=== PATIENT | female | born 1945 | race Caucasian/White ===

== ENCOUNTER 2017-07-04 10:30 | Inpatient (IN) | payer MEDICARE ==
[~2017-07-04 10:30] MED LIST: Gentamicin 40 MG/ML 2 ML Vial ONE; Povidone-Iodine 10% Soln 118.25 ML Bottle ONE
[2017-07-04] MEDS ORDERED: Propofol 200 MG/20 ML SDV ONE ×2 (12:07→15:11)
[2017-07-04] MEDS ORDERED: fentaNYL 100 MCG/2 ML SDV ONE (12:07)
[2017-07-04] MEDS ORDERED: Midazolam 1 MG/ML 2 ML SDV ONE ×2 (12:07→15:24)
[2017-07-04] MEDS ORDERED: Lactated Ringers 1,000 ML IV SCH (12:30)
[2017-07-04] MEDS ORDERED: Scopolamine 1.5 MG Transdermal Patch TRDERM SCH (12:30)
[2017-07-04] MEDS ORDERED: Ropivacaine 49.25 ML, Ketorolac 30 MG, EPINEPHrine 0.5 MG, cloNIDine 80 MCG, Sodium Chl... INJECT ONE ×5 (13:30)
[2017-07-04] MEDS ORDERED: ceFAZolin 2 GM in Sodium Chloride 0.9% 50 ML IV ONE (13:30)
[2017-07-04] MEDS ORDERED: Ketamine 500 MG/5 ML MDV IV SCH (13:30)
[2017-07-04] MEDS: Tranexamic Acid 950 MG in Sodium Chloride 0.9% 50 ML IV SCH ×2 (15:15→17:02)
[2017-07-04] MEDS ORDERED: Lactated Ringers 1,000 ML ONE (15:24)
[2017-07-04] MEDS ORDERED: Morphine 2 MG/ML Syringe IVPUSH PRN (16:41)
[2017-07-04] MEDS ORDERED: Docusate Sodium 100 MG Cap PO PRN (16:41)
[2017-07-04] MEDS ORDERED: diphenhydrAMINE 50 MG/ML SDV IVPUSH PRN (16:41)
[2017-07-04] MEDS ORDERED: Zolpidem 5 MG Tab PO PRN (16:41)
[2017-07-04] MEDS ORDERED: Aluminum Hydroxide/Magnesium Hydroxide/Simethicone Susp 30 ML Cup PO PRN (16:41)
[2017-07-04] MEDS ORDERED: Naloxone 0.4 MG/ML SDV IVPUSH PRN (16:41)
[2017-07-04] MEDS ORDERED: Sennosides 8.6 MG Tab PO PRN (16:41)
[2017-07-04] MEDS ORDERED: Ondansetron 4 MG/2 ML SDV IVPUSH PRN (16:41)
[2017-07-04] MEDS: SCOPOLAMINE PATCH CHECK TOP SCH (17:37)
[2017-07-04] MEDS: Diazepam 5 MG Tab PO PRN (17:42)
[2017-07-04] MEDS: Ketorolac 30 MG/ML SDV IVPUSH PRN (17:43)
[2017-07-04] MEDS ORDERED: Acetaminophen 1,000 MG in Premix Bag 1 BAG IV ONE (18:00)
--- NOTE | 2017-07-04 18:46 | PCM.CONS ---
H&P History of Present Illness - General Date of Service: 07/04/17 Admit Problem/Dx: Source of Information: Patient, Provider, RN Notes Reviewed History Limitations: Reports: Altered Mental Status (Cognitive impairment, congenital) - History of Present Illness Initial Comments - Free Text/Narative: Ms. De Souza is a 71-year-old woman who I been asked to see by Dr. Tej Francisco for assistance in medical management during the postoperative period. 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 She underwent a left total knee arthroplasty done earlier today by Dr. Tej Francisco. She's doing well during the initial postoperative period, pain control is adequate. Denies nausea, vomiting, chest pain, or shortness of breath. Initial vital signs have been stable and she has remained afebrile. Left Knee Pain Score (Numeric/FACES): 8 - Related Data Allergies/Adverse Reactions: Allergies Allergy/AdvReac Type Severity Reaction Status Date / Time lactose Allergy Diarrhea Verified 07/04/17 12:29 Pork/Porcine Containing Allergy Diarrhea Verified 07/04/17 12:29 Products tree and shrub pollen Allergy Wheezing Verified 06/30/17 14:27 Home Medications: Home Meds Calcium Carbonate/Vitamin D3 [Calcium 600 + Vit D 400 Softgl] 1 tab PO BID 04/11 [History] Cholecalciferol (Vitamin D3) [Vitamin D3] 1 tab PO DAILY 04/11/17 [History] Docusate Sodium [Doc-Q-Lace] 10 mg PO DAILY 04/11/17 [History] Esomeprazole Magnesium [Nexium] 40 mg PO DAILY 04/11/17 [History] Fluticasone Propionate [Flonase] 2 spray NASBOTH DAILY 04/11/17 [History] Furosemide [Lasix] 20 mg PO DAILY 04/11/17 [History] Lisinopril [Zestril] 5 mg PO DAILY 04/11/17 [History] Loperamide [Imodium] 2 mg PO BID 04/11/17 [History] Loratadine [Claritin] 10 mg PO DAILY 04/11/17 [History] Naproxen 500 mg PO BID 04/11/17 [History] QUEtiapine [SEROquel] 100 mg PO DAILY 04/11/17 [History] atorvaSTATin [Lipitor] 10 mg PO DAILY 04/11/17 [History] Sertraline [Zoloft] 100 mg PO DAILY 04/13/17 [History] Past Medical History HEENT History: Reports: Impaired Vision Cardiovascular History: Reports: Hypertension Gastrointestinal History: Reports: Chronic Diarrhea, GERD, Irritable Bowel Syndrome Musculoskeletal History: Reports: Back Pain, Chronic, Other (See Below) Other Musculoskeletal History: L knee pain Psychiatric History: Reports: Learning Disability Endocrine/Metabolic History: Reports: Obesity/BMI 30+ - Infectious Disease History Infectious Disease History: Reports: Measles - Past Surgical History Cardiovascular Surgical History: Reports: None GI Surgical History: Reports: None Endocrine Surgical History: Reports: None Musculoskeletal Surgical History: Reports: None Dermatological Surgical History: Reports: None Social & Family History - Tobacco Use Smoking Status *Q: Never Smoker Second Hand Smoke Exposure: No - Caffeine Use Caffeine Use: Reports: Coffee, Soda - Recreational Drug Use Recreational Drug Use: No H&P Review of Systems - Review of Systems: Review Of Systems: See Below General: Reports: No Symptoms Pulmonary: Reports: No Symptoms Cardiovascular: Reports: No Symptoms Gastrointestinal: Reports: No Symptoms Genitourinary: Reports: No Symptoms Musculoskeletal: Reports: No Symptoms, Joint Pain Exam - Exam Exam: See Below - Vital Signs Vital Signs: Last Vital Signs Temp 96.5 F 07/04/17 18:05 Pulse 76 07/04/17 18:20 Resp 18 07/04/17 18:20 BP 143/59 H 07/04/17 18:20 Pulse Ox 95 07/04/17 18:20 Weight: 205 lb - Exam Quality Assessment: Urinary Catheter, DVT Prophylaxis General: Alert, Cooperative, Mild Distress Neck: Supple, Trachea Midline, +2 Carotid Pulse wo Bruit Lungs: Clear to Auscultation, Normal Respiratory Effort Cardiovascular: Regular Rate, Regular Rhythm, Normal S1, Normal S2. No: Systolic Murmur, Diastolic Murmur GI/Abdominal Exam: Normal Bowel Sounds, Soft, Non-Tender, No Organomegaly, No Distention - Patient Data Lab Results Last 24 hrs: Laboratory Results - last 24 hr 07/04/17 Range/Units 12:20 Blood Type O POSITIVE Gel Antibody Screen Negative Consult PN Assessment/Plan Procedures: Procedures BLOOD TYPING SEROLOGIC ABO (06/29/17) BLOOD TYPING SEROLOGIC RH(D) (06/29/17) COMP SCREEN MAMMOGRAM ADD-ON (02/16/15) COMPLETE CBC AUTOMATED (06/29/17) COMPREHEN METABOLIC PANEL (06/29/17) CULTURE OTHR SPECIMN AEROBIC (06/29/17) ELECTROCARDIOGRAM TRACING (06/29/17) OFFICE/OUTPATIENT VISIT NEW (04/13/17) PT EVALUATION (12/18/13) RBC ANTIBODY SCREEN (06/29/17) ROUTINE VENIPUNCTURE (06/29/17) THERAPEUTIC EXERCISES (12/18/13) URINALYSIS AUTO W/O SCOPE (06/29/17) Problem List Initiated/Reviewed/Updated: Yes My Orders Last 24 Hours: My Active Orders 07/05/17 07:30 Pantoprazole [ProTONIX] 40 mg PO ACBREAKFAST 07/05/17 09:00 Fluticasone Propionate [Flonase] 0 gm NASBOTH DAILY Lisinopril [Prinivil] 5 mg PO DAILY Loratadine [Claritin] 10 mg PO DAILY QUEtiapine [SEROquel] 100 mg PO DAILY Sertraline [Zoloft] 100 mg PO DAILY atorvaSTATin [Lipitor] 10 mg PO DAILY Plan: ASSESSMENT AND RECOMMENDATIONS STATUS POST LEFT KNEE REPLACEMENT-stable and doing well during the initial postoperative period -Postoperative care per Dr. Francisco HYPERTENSION -Continue outpatient medical regimen, adjust as needed during hospital stay ENVIRONMENTAL ALLERGIES -Continue outpatient medical regimen Requesting Provider: CHARISMA Date Consult Requested: 07/04/17 Reason for Consult: Postoperative medical management
[2017-07-04] MEDS: oxyCODONE 5 MG Tab PO PRN (19:28)
[2017-07-04] MEDS: ceFAZolin 2 GM in Sodium Chloride 0.9% 50 ML IV SCH (21:23)
--- NOTE | 2017-07-04 23:04 | OR ---
DATE OF PROCEDURE: 07/04/2017 PREOPERATIVE DIAGNOSIS: Left knee primary osteoarthritis. POSTOPERATIVE DIAGNOSIS: Left knee primary osteoarthritis. PROCEDURE: Left knee total knee arthroplasty. SIGNAL INTEGRITY ENGINEER: CESAR Rankin. ANESTHESIA: Spinal plus conscious sedation. FLUID: Lactated Ringer solution. ESTIMATED BLOOD LOSS: 50 mL. COMPLICATIONS: None. SPECIMEN: None. DISCHARGE DISPOSITION: Stable to PACU. INSTRUMENTATION: Biomet Vanguard knee 62.5 femur, 71 tibia, 12 mm polyethylene insert, and 34 mm patella. HISTORY AND INDICATIONS FOR THE PROCEDURE: The patient was seen preoperatively in the clinic. She lives at a care facility here in [facility] and does have some mental deficits cognitively. She had failed nonoperative treatment. Preoperative imaging confirmed the above-mentioned diagnosis. Risks and benefits of the procedure were explained to the patient, her caregiver, and family and informed consent was obtained. DETAILS OF PROCEDURE: The patient was seen preoperatively by myself and the anesthesia staff in the preop holding area where the operative site was marked. She was brought to the operative suite by the anesthesia staff where spinal anesthesia and conscious sedation were administered. A well-padded tourniquet was placed on the left thigh. The left lower extremity was then prepped and draped in sterile manner. Time-out was called identifying the correct patient, correct procedure, the correct site, and antibiotics had begun with appropriate period of time. A midline incision was made 3 fingerbreadths proximal to the patella and carried down to the level of the tibial tubercle. A medial parapatellar arthrotomy was then made. A full synovectomy was performed. The infrapatellar fat pad was removed. The medial tibial plateau was visualized using Bovie electrocautery. Hemostasis was accomplished with Bovie electrocautery as well as an Aquamantys unit. Large amount of osteophytes around the patella, which needed to be removed prior to everting, it was then everted. The knee was flexed and then two cuts were made on the patella. This measured 34. Three holes were drilled. The patellar trial was then inserted. We then reamed the distal femoral canal and then placed the intramedullary guide at 9 mm distal cut, 5 degree of valgus. The guide was pinned in place. The distal cut was made and then the guide was removed. I then used a posterior condylar guide measuring 62.5 and then drilled the holes for this. I then inserted our chamfer block and then made the anterior, posterior, and chamfer cuts. I then removed the cut material using an osteotome. I then removed some osteophytes from around the tibial plateau and then made my proximal tibia cut using an extramedullary guide at approximately 5 degree posterior slope and then removed the proximal tibia using rongeur and Bovie electrocautery. We then used a laminar plant protection guard medially and laterally and removed the medial and lateral meniscus as well as removed extensive osteophytes posteriorly from the condyles. The posterior cruciate ligament was left intact. The anterior cruciate ligament was removed. I then anteriorized the tibia using a blunt Hohmann and protecting the medial collateral ligament with Z retractor and lateral collateral ligament with sharp Hohmann. I then placed our baseplate trial and then pinned this in place and then tamped down our fin cut. I then applied our tibial baseplate with the fin and then our femoral component drilled the lugs and then inserted the 10 tibia. This appeared to be a little bit tight in flexion, but good stability throughout range of motion. I then removed all of our components, copiously irrigated with saline. I then released part of the posterior lateral capsule using a pie cut technique. We then cemented our components in place, and the tourniquet was let down for 46 minutes. Please note that we did exsanguinate the left lower extremity and tourniquet was raised to 300 mmHg for 46 minutes. After this had been accomplished, we then removed our trial polyethylene insert and then removed any excess cement, copiously irrigated with saline, and then trialed with a 12, which I thought had a little bit better stability. We then inserted our 12 polyethylene insert. This provided good range of motion with mid flexion stability. We then copiously irrigated with saline again and then closed our capsule with two #5 Ethibond as well as #1 Stratafix and 3-0 Stratafix and then skin lidya. The patient was then transferred to hospital bed and taken to the PACU in stable condition. Kody Francisco DO /[id number]
[2017-07-05] MEDS: oxyCODONE 5 MG Tab PO PRN ×3 (01:20→10:05)
[2017-07-05] MEDS: Ketorolac 30 MG/ML SDV IVPUSH PRN (01:23)
[2017-07-05] MEDS: ceFAZolin 2 GM in Sodium Chloride 0.9% 50 ML IV SCH ×2 (05:22→14:42)
[2017-07-05] MEDS: Loratadine 10 MG Tab PO SCH (09:57)
[2017-07-05] MEDS: Pantoprazole 40 MG Tab.CR PO SCH (09:57)
[2017-07-05] MEDS: Aspirin 325 MG Tab.EC PO SCH (09:58)
[2017-07-05] MEDS: atorvaSTATin 10 MG Tab PO SCH (09:59)
[2017-07-05] MEDS: Fluticasone Propionate Nasal Spray 16 GM Bottle NASBOTH SCH (09:59)
[2017-07-05] MEDS: Lisinopril 5 MG Tab PO SCH (10:00)
[2017-07-05] MEDS: QUEtiapine 100 MG Tab PO SCH (10:04)
[2017-07-05] MEDS: Sertraline 50 MG Tab PO SCH (10:05)
[2017-07-05] MEDS: SCOPOLAMINE PATCH CHECK TOP SCH (10:07)
--- NOTE | 2017-07-05 10:16 | CR ---
Knee 1V or 2V Lt INDICATION: s/p left total knee replacement FINDINGS: Postoperative changes left total knee arthroplasty. Negative for postoperative purposes.
--- NOTE | 2017-07-05 12:19 | PCM.PN ---
- General Info Functional Status: Reports: Pain Controlled - Review of Systems General: Reports: No Symptoms HEENT: Reports: No Symptoms Pulmonary: Reports: No Symptoms Cardiovascular: Reports: No Symptoms Gastrointestinal: Reports: No Symptoms Genitourinary: Reports: No Symptoms Musculoskeletal: Reports: Joint Pain Skin: Reports: No Symptoms Neurological: Reports: No Symptoms Psychiatric: Reports: No Symptoms - Patient Data Vitals - Most Recent: Last Vital Signs Temp 98.2 F 07/05/17 11:35 Pulse 93 07/05/17 11:35 Resp 16 07/05/17 11:35 BP 123/89 07/05/17 11:35 Pulse Ox 91 L 07/05/17 11:35 Weight - Most Recent: 205 lb I&O - Last 24 Hours: Intake & Output 07/04/17 07/05/17 07/05/17 22:59 06:59 14:59 Intake Total 50 575 120 Output Total 450 282 100 Balance -400 293 20 Lab Results Last 24 Hours: Laboratory Results - last 24 hr 07/04/17 07/05/17 07/05/17 Range/Units 12:20 06:08 06:08 WBC 9.1 (4.5-11.0) K/uL RBC 3.96 (3.30-5.50) M/uL Hgb 10.7 L D (12.0-15.0) g/dL Hct 34.0 L (36.0-48.0) % MCV 86 (80-98) fL MCH 27 (27-31) pg MCHC 32 (32-36) % Plt Count 199 (150-400) K/uL Neut % (Auto) 79 H (36-66) % Lymph % (Auto) 13 L (24-44) % [place] % (Auto) 8 H (2-6) % Eos % (Auto) 1 L (2-4) % Baso % (Auto) 0 (0-1) % Sodium 140 (140-148) mmol/L Potassium 3.8 (3.6-5.2) mmol/L Chloride 105 (100-108) mmol/L Carbon Dioxide 29 (21-32) mmol/L Anion Gap 6.3 (5.0-14.0) mmol/L BUN 12 (7-18) mg/dL Creatinine 0.7 (0.6-1.0) mg/dL Est Cr Clr Drug Dosing 53.71 mL/min Estimated GFR (MDRD) > 60 (>60) Glucose 107 H (74-106) mg/dL Calcium 8.0 L (8.5-10.1) mg/dL Total Bilirubin 0.3 (0.2-1.0) mg/dL AST 60 H D (15-37) U/L ALT 42 D (12-78) U/L Alkaline Phosphatase 142 H (46-116) U/L Total Protein 6.3 L (6.4-8.2) g/dL Albumin 2.6 L (3.4-5.0) g/dL Globulin 3.7 H (2.3-3.5) g/dL Albumin/Globulin Ratio 0.7 L (1.2-2.2) Blood Type O POSITIVE Gel Antibody Screen Negative Med Orders - Current: Current Medications Al Hydroxide/Mg Hydroxide (Mag-Al Plus) 30 ml PO Q4H PRN PRN Reason: Constipation Aspirin (Ecotrin) 325 mg PO DAILY [facility] Last Admin: 07/05/17 09:58 Dose: 325 mg Atorvastatin Calcium (Lipitor) 10 mg PO DAILY [facility] Last Admin: 07/05/17 09:59 Dose: 10 mg Bisacodyl (Dulcolax) 10 mg PO DAILY PRN PRN Reason: Constipation Diazepam (Valium.) 5 mg PO Q6H PRN PRN Reason: Spasms Last Admin: 07/04/17 17:42 Dose: 5 mg Diphenhydramine HCl (Benadryl) 25 mg IVPUSH Q4H PRN PRN Reason: Itching Docusate Sodium (Colace) 100 mg PO BID PRN PRN Reason: Constipation Fluticasone Propionate (Flonase) 0 gm NASBOTH DAILY [facility] Last Admin: 07/05/17 09:59 Dose: 2 sprays Lactated Ringer's (Ringers, Lactated) 1,000 mls @ 0 mls/hr IV ASDIRECTED [facility] PRN Reason: KVO Last Infusion: 07/04/17 19:32 Dose: Infused Cefazolin Sodium 2 gm/ Sodium (Chloride) 50 mls @ 100 mls/hr IV Q8H [facility] Stop: 07/05/17 13:29 Last Admin: 07/05/17 05:22 Dose: 100 mls/hr Ketorolac Tromethamine (Toradol) 15 mg IVPUSH Q8H PRN PRN Reason: Pain Stop: 07/09/17 16:41 Last Admin: 07/05/17 01:23 Dose: 15 mg Lisinopril (Prinivil) 5 mg PO DAILY [facility] Last Admin: 07/05/17 10:00 Dose: 5 mg Loratadine (Claritin) 10 mg PO DAILY [facility] Last Admin: 07/05/17 09:57 Dose: 10 mg Magnesium Hydroxide (Milk Of Magnesia) 30 ml PO BID PRN PRN Reason: Constipation Morphine Sulfate (Morphine) 2 mg IVPUSH Q2H PRN PRN Reason: Pain Naloxone HCl (Narcan) 0.1 mg IVPUSH ONETIME PRN PRN Reason: Oversedation Scopolamine Patch (Check) 1 each TOP DAILY [facility] Last Admin: 07/05/17 10:07 Dose: 1 each Ondansetron HCl (Zofran) 8 mg IVPUSH Q4H PRN PRN Reason: Nausea/Vomiting Oxycodone HCl (Oxycodone) 10 mg PO Q4H PRN PRN Reason: Pain Last Admin: 07/05/17 10:05 Dose: 10 mg Pantoprazole Sodium (Protonix) 40 mg PO ACBREAKFAST [facility] Last Admin: 07/05/17 09:57 Dose: 40 mg Quetiapine Fumarate (Seroquel) 100 mg PO DAILY [facility] Last Admin: 07/05/17 10:04 Dose: 100 mg Scopolamine (Transderm-Scop) 1.5 mg TRDERM Q72H [facility] Stop: 07/07/17 12:00 Last Admin: 07/04/17 21:15 Dose: 1.5 mg Senna (Senna) 8.6 mg PO BID PRN PRN Reason: Constipation Sertraline HCl (Zoloft) 100 mg PO DAILY [facility] Last Admin: 07/05/17 10:05 Dose: 100 mg Sodium Chloride (Saline Flush) 10 ml FLUSH DAILY [facility] Tramadol HCl (Ultram) 100 mg PO Q6H PRN PRN Reason: Pain Zolpidem Tartrate (Ambien) 5 mg PO BEDTIME PRN PRN Reason: Sleep Discontinued Medications Ropivacaine 49.25 ml/Ketorolac Tromethamine 30 mg/Epinephrine HCl 0.5 mg/ Clonidine HCl 80 mcg/ Sodium Chloride 48.45 ml 0 ml INJECT ONETIME ONE Stop: 07/04/17 13:31 Last Admin: 07/04/17 16:30 Dose: 100 ml Fentanyl (Sublimaze) Confirm Administered Dose 100 mcg .ROUTE .STK-MED ONE Stop: 07/04/17 12:08 Gentamicin Sulfate (Gentamicin) Confirm Administered Dose 240 mg .ROUTE .STK- MED ONE Stop: 07/04/17 06:59 Last Admin: 07/04/17 15:42 Dose: 240 mg Cefazolin Sodium 2 gm/ Sodium (Chloride) 50 mls @ 100 mls/hr IV ONETIME ONE Stop: 07/04/17 13:59 Last Admin: 07/04/17 14:30 Dose: 100 mls/hr Tranexamic Acid 950 mg/ Sodium (Chloride) 59.5 mls @ 238 mls/hr IV Q3H [facility] Stop: 07/04/17 16:44 Last Admin: 07/04/17 17:02 Dose: 238 mls/hr Lactated Ringer's (Ringers, Lactated) Confirm Administered Dose 1,000 mls @ as directed .ROUTE .STK-MED ONE Stop: 07/04/17 15:25 Acetaminophen 1,000 mg/ Premix 100 mls @ 400 mls/hr IV NOW ONE Stop: 07/04/17 18:14 Last Admin: 07/04/17 17:29 Dose: 400 mls/hr Ketamine HCl (Ketalar) 23 mg IV ASDIRECTED [facility] Midazolam HCl (Versed 1 Mg/Ml) Confirm Administered Dose 2 mg .ROUTE .STK-MED ONE Stop: 07/04/17 12:08 Midazolam HCl (Versed 1 Mg/Ml) Confirm Administered Dose 2 mg .ROUTE .STK-MED ONE Stop: 07/04/17 15:25 Povidone Iodine (Betadine 10% Soln) Confirm Administered Dose 1 ml .ROUTE .STK- MED ONE Stop: 07/04/17 06:59 Last Admin: 07/04/17 15:59 Dose: 1 ml Propofol (Diprivan 20 Ml) Confirm Administered Dose 200 mg .ROUTE .STK-MED ONE Stop: 07/04/17 12:08 Propofol (Diprivan 20 Ml) Confirm Administered Dose 200 mg .ROUTE .STK-MED ONE Stop: 07/04/17 15:12 - Exam General: Alert, Oriented HEENT: Pupils Equal, Pupils Reactive, EOMI, Mucous Membr. Moist/Blair Neck: Supple Extremities: Joint Swelling Peripheral Pulses: 2+: Dorsalis Pedis (L) Skin: Warm, Dry, Intact Wound/Incisions: Healing Well, Dressing Dry and Intact Neurological: No New Focal Deficit Psy/Mental Status: Alert, Normal Affect, Normal Mood Physical Findings Comments:: rom 12-86 pain controlled - Problem List Review Problem List Initiated/Reviewed/Updated: Yes - My Orders Last 24 Hours: My Active Orders 07/04/17 12:30 Lactated Ringers [Ringers, Lactated] 1,000 ml IV ASDIRECTED Scopolamine [Transderm-Scop] 1.5 mg TRDERM Q72H 07/04/17 13:00 Sequential Compression Device [OM.PC] Routine 07/04/17 16:00 Non-Formulary Medication [NF Drug] 1 each TOP DAILY - Plan Plan:: pt/ot pain control dvt prophylaxis most likely dc to [facility] emphasized need for extension
[2017-07-05] MEDS: Sodium Chloride 0.9% 10 ML Syringe FLUSH SCH (14:59)
[2017-07-05] MEDS: traMADol 50 MG Tab PO PRN ×2 (15:03→22:10)
[2017-07-05] MEDS: Diazepam 5 MG Tab PO PRN ×2 (15:07→22:11)
--- NOTE | 2017-07-05 19:23 | PCM.CONSN ---
- General Info Date of Service: 07/05/17 Functional Status: Reports: Pain Controlled, Tolerating Diet, Ambulating - Review of Systems General: Denies: Fever, Weakness, Chills Pulmonary: Reports: No Symptoms Cardiovascular: Reports: No Symptoms Gastrointestinal: Reports: No Symptoms Systems Review Comment:: This patient has remained stable since surgery yesterday, vital signs have been good and she has remained afebrile. She is been up and walking in the halls with assistance and use of a walker. - Patient Data Vitals - Most Recent: Last Vital Signs Temp 97.9 F 07/05/17 19:12 Pulse 95 07/05/17 19:12 Resp 16 07/05/17 19:12 BP 132/63 07/05/17 19:12 Pulse Ox 91 L 07/05/17 19:12 Weight - Most Recent: 205 lb I&O - Last 24 Hours: Intake & Output 07/05/17 07/05/17 07/05/17 06:59 14:59 22:59 Intake Total 575 870 Output Total 282 200 Balance 293 670 Lab Results Last 24 Hours: Laboratory Results - last 24 hr 07/05/17 07/05/17 Range/Units 06:08 06:08 WBC 9.1 (4.5-11.0) K/uL RBC 3.96 (3.30-5.50) M/uL Hgb 10.7 L D (12.0-15.0) g/dL Hct 34.0 L (36.0-48.0) % MCV 86 (80-98) fL MCH 27 (27-31) pg MCHC 32 (32-36) % Plt Count 199 (150-400) K/uL Neut % (Auto) 79 H (36-66) % Lymph % (Auto) 13 L (24-44) % [place] % (Auto) 8 H (2-6) % Eos % (Auto) 1 L (2-4) % Baso % (Auto) 0 (0-1) % Sodium 140 (140-148) mmol/L Potassium 3.8 (3.6-5.2) mmol/L Chloride 105 (100-108) mmol/L Carbon Dioxide 29 (21-32) mmol/L Anion Gap 6.3 (5.0-14.0) mmol/L BUN 12 (7-18) mg/dL Creatinine 0.7 (0.6-1.0) mg/dL Est Cr Clr Drug Dosing 53.71 mL/min Estimated GFR (MDRD) > 60 (>60) Glucose 107 H (74-106) mg/dL Calcium 8.0 L (8.5-10.1) mg/dL Total Bilirubin 0.3 (0.2-1.0) mg/dL AST 60 H D (15-37) U/L ALT 42 D (12-78) U/L Alkaline Phosphatase 142 H (46-116) U/L Total Protein 6.3 L (6.4-8.2) g/dL Albumin 2.6 L (3.4-5.0) g/dL Globulin 3.7 H (2.3-3.5) g/dL Albumin/Globulin Ratio 0.7 L (1.2-2.2) Med Orders - Current: Current Medications Al Hydroxide/Mg Hydroxide (Mag-Al Plus) 30 ml PO Q4H PRN PRN Reason: Constipation Aspirin (Ecotrin) 325 mg PO DAILY [facility] Last Admin: 07/05/17 09:58 Dose: 325 mg Atorvastatin Calcium (Lipitor) 10 mg PO DAILY [facility] Last Admin: 07/05/17 09:59 Dose: 10 mg Bisacodyl (Dulcolax) 10 mg PO DAILY PRN PRN Reason: Constipation Diazepam (Valium.) 5 mg PO Q6H PRN PRN Reason: Spasms Last Admin: 07/05/17 15:07 Dose: 5 mg Diphenhydramine HCl (Benadryl) 25 mg IVPUSH Q4H PRN PRN Reason: Itching Docusate Sodium (Colace) 100 mg PO BID PRN PRN Reason: Constipation Fluticasone Propionate (Flonase) 0 gm NASBOTH DAILY [facility] Last Admin: 07/05/17 09:59 Dose: 2 sprays Lactated Ringer's (Ringers, Lactated) 1,000 mls @ 0 mls/hr IV ASDIRECTED [facility] PRN Reason: KVO Last Infusion: 07/04/17 19:32 Dose: Infused Ketorolac Tromethamine (Toradol) 15 mg IVPUSH Q8H PRN PRN Reason: Pain Stop: 07/09/17 16:41 Last Admin: 07/05/17 01:23 Dose: 15 mg Lisinopril (Prinivil) 5 mg PO DAILY [facility] Last Admin: 07/05/17 10:00 Dose: 5 mg Loratadine (Claritin) 10 mg PO DAILY [facility] Last Admin: 07/05/17 09:57 Dose: 10 mg Magnesium Hydroxide (Milk Of Magnesia) 30 ml PO BID PRN PRN Reason: Constipation Morphine Sulfate (Morphine) 2 mg IVPUSH Q2H PRN PRN Reason: Pain Naloxone HCl (Narcan) 0.1 mg IVPUSH ONETIME PRN PRN Reason: Oversedation Scopolamine Patch (Check) 1 each TOP DAILY [facility] Last Admin: 07/05/17 10:07 Dose: 1 each Ondansetron HCl (Zofran) 8 mg IVPUSH Q4H PRN PRN Reason: Nausea/Vomiting Oxycodone HCl (Oxycodone) 10 mg PO Q4H PRN PRN Reason: Pain Last Admin: 07/05/17 10:05 Dose: 10 mg Pantoprazole Sodium (Protonix) 40 mg PO ACBREAKFAST [facility] Last Admin: 07/05/17 09:57 Dose: 40 mg Quetiapine Fumarate (Seroquel) 100 mg PO DAILY [facility] Last Admin: 07/05/17 10:04 Dose: 100 mg Scopolamine (Transderm-Scop) 1.5 mg TRDERM Q72H [facility] Stop: 07/07/17 12:00 Last Admin: 07/04/17 21:15 Dose: 1.5 mg Senna (Senna) 8.6 mg PO BID PRN PRN Reason: Constipation Sertraline HCl (Zoloft) 100 mg PO DAILY [facility] Last Admin: 07/05/17 10:05 Dose: 100 mg Sodium Chloride (Saline Flush) 10 ml FLUSH DAILY [facility] Last Admin: 07/05/17 14:59 Dose: Not Given Tramadol HCl (Ultram) 100 mg PO Q6H PRN PRN Reason: Pain Last Admin: 07/05/17 15:03 Dose: 100 mg Zolpidem Tartrate (Ambien) 5 mg PO BEDTIME PRN PRN Reason: Sleep Discontinued Medications Ropivacaine 49.25 ml/Ketorolac Tromethamine 30 mg/Epinephrine HCl 0.5 mg/ Clonidine HCl 80 mcg/ Sodium Chloride 48.45 ml 0 ml INJECT ONETIME ONE Stop: 07/04/17 13:31 Last Admin: 07/04/17 16:30 Dose: 100 ml Fentanyl (Sublimaze) Confirm Administered Dose 100 mcg .ROUTE .STK-MED ONE Stop: 07/04/17 12:08 Gentamicin Sulfate (Gentamicin) Confirm Administered Dose 240 mg .ROUTE .STK- MED ONE Stop: 07/04/17 06:59 Last Admin: 07/04/17 15:42 Dose: 240 mg Cefazolin Sodium 2 gm/ Sodium (Chloride) 50 mls @ 100 mls/hr IV ONETIME ONE Stop: 07/04/17 13:59 Last Admin: 07/04/17 14:30 Dose: 100 mls/hr Tranexamic Acid 950 mg/ Sodium (Chloride) 59.5 mls @ 238 mls/hr IV Q3H [facility] Stop: 07/04/17 16:44 Last Admin: 07/04/17 17:02 Dose: 238 mls/hr Lactated Ringer's (Ringers, Lactated) Confirm Administered Dose 1,000 mls @ as directed .ROUTE .STK-MED ONE Stop: 07/04/17 15:25 Acetaminophen 1,000 mg/ Premix 100 mls @ 400 mls/hr IV NOW ONE Stop: 07/04/17 18:14 Last Admin: 07/04/17 17:29 Dose: 400 mls/hr Cefazolin Sodium 2 gm/ Sodium (Chloride) 50 mls @ 100 mls/hr IV Q8H [facility] Stop: 07/05/17 13:29 Last Admin: 07/05/17 14:42 Dose: 100 mls/hr Ketamine HCl (Ketalar) 23 mg IV ASDIRECTED [facility] Midazolam HCl (Versed 1 Mg/Ml) Confirm Administered Dose 2 mg .ROUTE .STK-MED ONE Stop: 07/04/17 12:08 Midazolam HCl (Versed 1 Mg/Ml) Confirm Administered Dose 2 mg .ROUTE .STK-MED ONE Stop: 07/04/17 15:25 Povidone Iodine (Betadine 10% Soln) Confirm Administered Dose 1 ml .ROUTE .STK- MED ONE Stop: 07/04/17 06:59 Last Admin: 07/04/17 15:59 Dose: 1 ml Propofol (Diprivan 20 Ml) Confirm Administered Dose 200 mg .ROUTE .STK-MED ONE Stop: 07/04/17 12:08 Propofol (Diprivan 20 Ml) Confirm Administered Dose 200 mg .ROUTE .STK-MED ONE Stop: 07/04/17 15:12 - Exam General: Alert, Cooperative, No Acute Distress Lungs: Clear to Auscultation, Normal Respiratory Effort Cardiovascular: Regular Rate, Regular Rhythm, No Murmurs GI/Abdominal Exam: Normal Bowel Sounds, Soft, Non-Tender, No Organomegaly, No Distention Consult PN Assessment/Plan Procedures: Procedures BLOOD TYPING SEROLOGIC ABO (06/29/17) BLOOD TYPING SEROLOGIC RH(D) (06/29/17) COMP SCREEN MAMMOGRAM ADD-ON (02/16/15) COMPLETE CBC AUTOMATED (06/29/17) COMPREHEN METABOLIC PANEL (06/29/17) CULTURE OTHR SPECIMN AEROBIC (06/29/17) ELECTROCARDIOGRAM TRACING (06/29/17) OFFICE/OUTPATIENT VISIT NEW (04/13/17) PT EVALUATION (12/18/13) RBC ANTIBODY SCREEN (06/29/17) ROUTINE VENIPUNCTURE (06/29/17) THERAPEUTIC EXERCISES (12/18/13) URINALYSIS AUTO W/O SCOPE (06/29/17) Problem List Initiated/Reviewed/Updated: Yes My Orders Last 24 Hours: My Active Orders 07/05/17 07:30 Pantoprazole [ProTONIX] 40 mg PO ACBREAKFAST 07/05/17 09:00 Fluticasone Propionate [Flonase] 0 gm NASBOTH DAILY Lisinopril [Prinivil] 5 mg PO DAILY Loratadine [Claritin] 10 mg PO DAILY [facility] [SEROquel] 100 mg PO DAILY Sertraline [Zoloft] 100 mg PO DAILY atorvaSTATin [Lipitor] 10 mg PO DAILY Plan: ASSESSMENT AND RECOMMENDATIONS STATUS POST LEFT KNEE REPLACEMENT-stable and doing well since surgery yesterday -Postoperative care per Dr. Francisco HYPERTENSION -Continue outpatient medical regimen, adjust as needed during hospital stay ENVIRONMENTAL ALLERGIES -Continue outpatient medical regimen
[2017-07-05] MEDS: Bisacodyl 5 MG Tab PO PRN (22:10)
[2017-07-06] MEDS: oxyCODONE 5 MG Tab PO PRN (03:51)
[2017-07-06] MEDS: Diazepam 5 MG Tab PO PRN (03:51)
[2017-07-06] MEDS: Pantoprazole 40 MG Tab.CR PO SCH (07:40)
[2017-07-06] MEDS: traMADol 50 MG Tab PO PRN ×2 (07:45→15:48)
[2017-07-06] MEDS ORDERED: Potassium Chloride 20 MEQ Tab.ER PO ONE (09:00)
[2017-07-06] MEDS: Magnesium Hydroxide 400 MG/5 ML Susp 30 ML Cup PO PRN ×2 (09:12→20:16)
[2017-07-06] MEDS: Fluticasone Propionate Nasal Spray 16 GM Bottle NASBOTH SCH (09:13)
[2017-07-06] MEDS: Loratadine 10 MG Tab PO SCH (09:13)
[2017-07-06] MEDS: Aspirin 325 MG Tab.EC PO SCH (09:13)
[2017-07-06] MEDS: atorvaSTATin 10 MG Tab PO SCH (09:13)
[2017-07-06] MEDS: Sertraline 50 MG Tab PO SCH (09:14)
[2017-07-06] MEDS: SCOPOLAMINE PATCH CHECK TOP SCH (09:14)
[2017-07-06] MEDS: QUEtiapine 100 MG Tab PO SCH (09:14)
[2017-07-06] MEDS: Sodium Chloride 0.9% 10 ML Syringe FLUSH SCH (09:14)
--- NOTE | 2017-07-06 09:15 | PCM.PN ---
- General Info Date of Service: 07/06/17 Admission Dx/Problem (Free Text): Patient is doing very well. She is status postop 2 days of a left total knee replacement. She is ambulating without any difficulties. Her pain is under control with oral pain medication. Functional Status: Reports: Pain Controlled, Tolerating Diet, Ambulating, Urinating - Review of Systems General: Reports: No Symptoms - Patient Data Vitals - Most Recent: Last Vital Signs Temp 36.3 C 07/06/17 07:33 Pulse 83 07/06/17 07:33 Resp 20 07/06/17 07:33 BP 100/48 L 07/06/17 07:33 Pulse Ox 96 07/06/17 07:33 Weight - Most Recent: 205 lb I&O - Last 24 Hours: Intake & Output 07/05/17 07/06/17 07/06/17 22:59 06:59 14:59 Intake Total 360 Output Total 300 550 Balance -300 -190 Lab Results Last 24 Hours: Laboratory Results - last 24 hr 07/06/17 07/06/17 Range/Units 05:40 05:40 WBC 9.4 (4.5-11.0) K/uL RBC 3.63 (3.30-5.50) M/uL Hgb 9.8 L (12.0-15.0) g/dL Hct 31.4 L (36.0-48.0) % MCV 87 (80-98) fL MCH 27 (27-31) pg MCHC 31 L (32-36) % Plt Count 195 (150-400) K/uL Neut % (Auto) 74 H (36-66) % Lymph % (Auto) 14 L (24-44) % [place] % (Auto) 10 H (2-6) % Eos % (Auto) 1 L (2-4) % Baso % (Auto) 0 (0-1) % Sodium 140 (140-148) mmol/L Potassium 3.5 L (3.6-5.2) mmol/L Chloride 106 (100-108) mmol/L Carbon Dioxide 29 (21-32) mmol/L Anion Gap 8.5 (5.0-14.0) mmol/L BUN 12 (7-18) mg/dL Creatinine 0.6 (0.6-1.0) mg/dL Est Cr Clr Drug Dosing 62.67 mL/min Estimated GFR (MDRD) > 60 (>60) Glucose 108 H (74-106) mg/dL Calcium 8.2 L (8.5-10.1) mg/dL Total Bilirubin 0.4 (0.2-1.0) mg/dL AST 27 (15-37) U/L ALT 29 (12-78) U/L Alkaline Phosphatase 120 H (46-116) U/L Total Protein 6.3 L (6.4-8.2) g/dL Albumin 2.4 L (3.4-5.0) g/dL Globulin 3.9 H (2.3-3.5) g/dL Albumin/Globulin Ratio 0.6 L (1.2-2.2) Med Orders - Current: Current Medications Al Hydroxide/Mg Hydroxide (Mag-Al Plus) 30 ml PO Q4H PRN PRN Reason: Constipation Aspirin (Ecotrin) 325 mg PO DAILY [facility] Last Admin: 07/05/17 09:58 Dose: 325 mg Atorvastatin Calcium (Lipitor) 10 mg PO DAILY [facility] Last Admin: 07/05/17 09:59 Dose: 10 mg Bisacodyl (Dulcolax) 10 mg PO DAILY PRN PRN Reason: Constipation Last Admin: 07/05/17 22:10 Dose: 10 mg Diazepam (Valium.) 5 mg PO Q6H PRN PRN Reason: Spasms Last Admin: 07/06/17 03:51 Dose: 5 mg Diphenhydramine HCl (Benadryl) 25 mg IVPUSH Q4H PRN PRN Reason: Itching Docusate Sodium (Colace) 100 mg PO BID PRN PRN Reason: Constipation Fluticasone Propionate (Flonase) 0 gm NASBOTH DAILY [facility] Last Admin: 07/05/17 09:59 Dose: 2 sprays Lactated Ringer's (Ringers, Lactated) 1,000 mls @ 0 mls/hr IV ASDIRECTED [facility] PRN Reason: KVO Last Infusion: 07/04/17 19:32 Dose: Infused Ketorolac Tromethamine (Toradol) 15 mg IVPUSH Q8H PRN PRN Reason: Pain Stop: 07/09/17 16:41 Last Admin: 07/05/17 01:23 Dose: 15 mg Lisinopril (Prinivil) 5 mg PO DAILY [facility] Last Admin: 07/05/17 10:00 Dose: 5 mg Loratadine (Claritin) 10 mg PO DAILY [facility] Last Admin: 07/05/17 09:57 Dose: 10 mg Magnesium Hydroxide (Milk Of Magnesia) 30 ml PO BID PRN PRN Reason: Constipation Morphine Sulfate (Morphine) 2 mg IVPUSH Q2H PRN PRN Reason: Pain Naloxone HCl (Narcan) 0.1 mg IVPUSH ONETIME PRN PRN Reason: Oversedation Scopolamine Patch (Check) 1 each TOP DAILY [facility] Last Admin: 07/05/17 10:07 Dose: 1 each Ondansetron HCl (Zofran) 8 mg IVPUSH Q4H PRN PRN Reason: Nausea/Vomiting Oxycodone HCl (Oxycodone) 10 mg PO Q4H PRN PRN Reason: Pain Last Admin: 07/06/17 03:51 Dose: 10 mg Pantoprazole Sodium (Protonix) 40 mg PO ACBREAKFAST [facility] Last Admin: 07/06/17 07:40 Dose: 40 mg Quetiapine Fumarate (Seroquel) 100 mg PO DAILY [facility] Last Admin: 07/05/17 10:04 Dose: 100 mg Scopolamine (Transderm-Scop) 1.5 mg TRDERM Q72H [facility] Stop: 07/07/17 12:00 Last Admin: 07/04/17 21:15 Dose: 1.5 mg Senna (Senna) 8.6 mg PO BID PRN PRN Reason: Constipation Sertraline HCl (Zoloft) 100 mg PO DAILY [facility] Last Admin: 07/05/17 10:05 Dose: 100 mg Sodium Chloride (Saline Flush) 10 ml FLUSH DAILY [facility] Last Admin: 07/05/17 14:59 Dose: Not Given Tramadol HCl (Ultram) 100 mg PO Q6H PRN PRN Reason: Pain Last Admin: 07/06/17 07:45 Dose: 100 mg Zolpidem Tartrate (Ambien) 5 mg PO BEDTIME PRN PRN Reason: Sleep Discontinued Medications Ropivacaine 49.25 ml/Ketorolac Tromethamine 30 mg/Epinephrine HCl 0.5 mg/ Clonidine HCl 80 mcg/ Sodium Chloride 48.45 ml 0 ml INJECT ONETIME ONE Stop: 07/04/17 13:31 Last Admin: 07/04/17 16:30 Dose: 100 ml Fentanyl (Sublimaze) Confirm Administered Dose 100 mcg .ROUTE .STK-MED ONE Stop: 07/04/17 12:08 Gentamicin Sulfate (Gentamicin) Confirm Administered Dose 240 mg .ROUTE .STK- MED ONE Stop: 07/04/17 06:59 Last Admin: 07/04/17 15:42 Dose: 240 mg Cefazolin Sodium 2 gm/ Sodium (Chloride) 50 mls @ 100 mls/hr IV ONETIME ONE Stop: 07/04/17 13:59 Last Admin: 07/04/17 14:30 Dose: 100 mls/hr Tranexamic Acid 950 mg/ Sodium (Chloride) 59.5 mls @ 238 mls/hr IV Q3H [facility] Stop: 07/04/17 16:44 Last Admin: 07/04/17 17:02 Dose: 238 mls/hr Lactated Ringer's (Ringers, Lactated) Confirm Administered Dose 1,000 mls @ as directed .ROUTE .STK-MED ONE Stop: 07/04/17 15:25 Acetaminophen 1,000 mg/ Premix 100 mls @ 400 mls/hr IV NOW ONE Stop: 07/04/17 18:14 Last Admin: 07/04/17 17:29 Dose: 400 mls/hr Cefazolin Sodium 2 gm/ Sodium (Chloride) 50 mls @ 100 mls/hr IV Q8H [facility] Stop: 07/05/17 13:29 Last Admin: 07/05/17 14:42 Dose: 100 mls/hr Ketamine HCl (Ketalar) 23 mg IV ASDIRECTED [facility] Midazolam HCl (Versed 1 Mg/Ml) Confirm Administered Dose 2 mg .ROUTE .STK-MED ONE Stop: 07/04/17 12:08 Midazolam HCl (Versed 1 Mg/Ml) Confirm Administered Dose 2 mg .ROUTE .STK-MED ONE Stop: 07/04/17 15:25 Potassium Chloride (Klor-Con M20) 40 meq PO ONETIME ONE Stop: 07/06/17 09:01 Povidone Iodine (Betadine 10% Soln) Confirm Administered Dose 1 ml .ROUTE .STK- MED ONE Stop: 07/04/17 06:59 Last Admin: 07/04/17 15:59 Dose: 1 ml Propofol (Diprivan 20 Ml) Confirm Administered Dose 200 mg .ROUTE .STK-MED ONE Stop: 07/04/17 12:08 Propofol (Diprivan 20 Ml) Confirm Administered Dose 200 mg .ROUTE .STK-MED ONE Stop: 07/04/17 15:12 - Exam General: Alert, Oriented Extremities: Normal Inspection, Normal Range of Motion, Non-Tender, Normal Capillary Refill, Pedal Edema Peripheral Pulses: 2+: Dorsalis Pedis (L), Dorsalis Pedis (R) Skin: Warm, Dry, Intact Wound/Incisions: Healing Well, Dressing Dry and Intact Neurological: No New Focal Deficit, Normal Gait Psy/Mental Status: Alert - Problem List Review Problem List Initiated/Reviewed/Updated: Yes - My Orders Last 24 Hours: My Active Orders 07/05/17 09:00 Aspirin [Ecotrin] 325 mg PO DAILY Sodium Chloride 0.9% [Saline Flush] 10 ml FLUSH DAILY 07/07/17 05:15 CBC WITH AUTO DIFF [HEME] DAILY COMPREHENSIVE METABOLIC PN,CMP [CHEM] DAILY 07/08/17 05:15 CBC WITH AUTO DIFF [HEME] DAILY COMPREHENSIVE METABOLIC PN,CMP [CHEM] DAILY - Plan Plan:: Patient will continue to work with PT OT on strengthening. We'll continue with oral pain medication for pain management. Patient will plan on going to snf facility tomorrow. She will have a follow-up with me in 3 weeks.
--- NOTE | 2017-07-06 11:08 | PCM.CONSN ---
- General Info Date of Service: 07/06/17 Functional Status: Reports: Pain Controlled, Tolerating Diet, Ambulating - Review of Systems Pulmonary: Reports: No Symptoms Cardiovascular: Reports: No Symptoms Gastrointestinal: Reports: No Symptoms Systems Review Comment:: This patient has been stable over the past 24 hours, she did have a slight temperature elevation which is felt to be secondary to atelectasis. Otherwise vital signs have been stable and she has remained afebrile. Has not yet had a bowel movement but has been up walking the hallways with physical therapy. - Patient Data Vitals - Most Recent: Last Vital Signs Temp 98.4 F 07/06/17 11:02 Pulse 97 07/06/17 11:02 Resp 16 07/06/17 11:02 BP 128/51 L 07/06/17 11:02 Pulse Ox 87 L 07/06/17 11:02 Weight - Most Recent: 205 lb I&O - Last 24 Hours: Intake & Output 07/05/17 07/06/17 07/06/17 22:59 06:59 14:59 Intake Total 360 Output Total 300 550 Balance -300 -190 Lab Results Last 24 Hours: Laboratory Results - last 24 hr 07/06/17 07/06/17 Range/Units 05:40 05:40 WBC 9.4 (4.5-11.0) K/uL RBC 3.63 (3.30-5.50) M/uL Hgb 9.8 L (12.0-15.0) g/dL Hct 31.4 L (36.0-48.0) % MCV 87 (80-98) fL MCH 27 (27-31) pg MCHC 31 L (32-36) % Plt Count 195 (150-400) K/uL Neut % (Auto) 74 H (36-66) % Lymph % (Auto) 14 L (24-44) % [place] % (Auto) 10 H (2-6) % Eos % (Auto) 1 L (2-4) % Baso % (Auto) 0 (0-1) % Sodium 140 (140-148) mmol/L Potassium 3.5 L (3.6-5.2) mmol/L Chloride 106 (100-108) mmol/L Carbon Dioxide 29 (21-32) mmol/L Anion Gap 8.5 (5.0-14.0) mmol/L BUN 12 (7-18) mg/dL Creatinine 0.6 (0.6-1.0) mg/dL Est Cr Clr Drug Dosing 62.67 mL/min Estimated GFR (MDRD) > 60 (>60) Glucose 108 H (74-106) mg/dL Calcium 8.2 L (8.5-10.1) mg/dL Total Bilirubin 0.4 (0.2-1.0) mg/dL AST 27 (15-37) U/L ALT 29 (12-78) U/L Alkaline Phosphatase 120 H (46-116) U/L Total Protein 6.3 L (6.4-8.2) g/dL Albumin 2.4 L (3.4-5.0) g/dL Globulin 3.9 H (2.3-3.5) g/dL Albumin/Globulin Ratio 0.6 L (1.2-2.2) Med Orders - Current: Current Medications Al Hydroxide/Mg Hydroxide (Mag-Al Plus) 30 ml PO Q4H PRN PRN Reason: Constipation Aspirin (Ecotrin) 325 mg PO DAILY [facility] Last Admin: 07/06/17 09:13 Dose: 325 mg Atorvastatin Calcium (Lipitor) 10 mg PO DAILY [facility] Last Admin: 07/06/17 09:13 Dose: 10 mg Bisacodyl (Dulcolax) 10 mg PO DAILY PRN PRN Reason: Constipation Last Admin: 07/05/17 22:10 Dose: 10 mg Diazepam (Valium.) 5 mg PO Q6H PRN PRN Reason: Spasms Last Admin: 07/06/17 03:51 Dose: 5 mg Diphenhydramine HCl (Benadryl) 25 mg IVPUSH Q4H PRN PRN Reason: Itching Docusate Sodium (Colace) 100 mg PO BID PRN PRN Reason: Constipation Fluticasone Propionate (Flonase) 0 gm NASBOTH DAILY [facility] Last Admin: 07/06/17 09:13 Dose: 2 sprays Lactated Ringer's (Ringers, Lactated) 1,000 mls @ 0 mls/hr IV ASDIRECTED [facility] PRN Reason: KVO Last Infusion: 07/04/17 19:32 Dose: Infused Ketorolac Tromethamine (Toradol) 15 mg IVPUSH Q8H PRN PRN Reason: Pain Stop: 07/09/17 16:41 Last Admin: 07/05/17 01:23 Dose: 15 mg Lisinopril (Prinivil) 5 mg PO DAILY [facility] Last Admin: 07/05/17 10:00 Dose: 5 mg Loratadine (Claritin) 10 mg PO DAILY [facility] Last Admin: 07/06/17 09:13 Dose: 10 mg Magnesium Hydroxide (Milk Of Magnesia) 30 ml PO BID PRN PRN Reason: Constipation Last Admin: 07/06/17 09:12 Dose: 30 ml Morphine Sulfate (Morphine) 2 mg IVPUSH Q2H PRN PRN Reason: Pain Naloxone HCl (Narcan) 0.1 mg IVPUSH ONETIME PRN PRN Reason: Oversedation Scopolamine Patch (Check) 1 each TOP DAILY [facility] Last Admin: 07/06/17 09:14 Dose: 1 each Ondansetron HCl (Zofran) 8 mg IVPUSH Q4H PRN PRN Reason: Nausea/Vomiting Oxycodone HCl (Oxycodone) 10 mg PO Q4H PRN PRN Reason: Pain Last Admin: 07/06/17 03:51 Dose: 10 mg Pantoprazole Sodium (Protonix) 40 mg PO ACBREAKFAST [facility] Last Admin: 07/06/17 07:40 Dose: 40 mg Quetiapine Fumarate (Seroquel) 100 mg PO DAILY [facility] Last Admin: 07/06/17 09:14 Dose: 100 mg Scopolamine (Transderm-Scop) 1.5 mg TRDERM Q72H [facility] Stop: 07/07/17 12:00 Last Admin: 07/04/17 21:15 Dose: 1.5 mg Senna (Senna) 8.6 mg PO BID PRN PRN Reason: Constipation Sertraline HCl (Zoloft) 100 mg PO DAILY [facility] Last Admin: 07/06/17 09:14 Dose: 100 mg Sodium Chloride (Saline Flush) 10 ml FLUSH DAILY [facility] Last Admin: 07/06/17 09:14 Dose: Not Given Tramadol HCl (Ultram) 100 mg PO Q6H PRN PRN Reason: Pain Last Admin: 07/06/17 07:45 Dose: 100 mg Zolpidem Tartrate (Ambien) 5 mg PO BEDTIME PRN PRN Reason: Sleep Discontinued Medications Ropivacaine 49.25 ml/Ketorolac Tromethamine 30 mg/Epinephrine HCl 0.5 mg/ Clonidine HCl 80 mcg/ Sodium Chloride 48.45 ml 0 ml INJECT ONETIME ONE Stop: 07/04/17 13:31 Last Admin: 07/04/17 16:30 Dose: 100 ml Fentanyl (Sublimaze) Confirm Administered Dose 100 mcg .ROUTE .STK-MED ONE Stop: 07/04/17 12:08 Gentamicin Sulfate (Gentamicin) Confirm Administered Dose 240 mg .ROUTE .STK- MED ONE Stop: 07/04/17 06:59 Last Admin: 07/04/17 15:42 Dose: 240 mg Cefazolin Sodium 2 gm/ Sodium (Chloride) 50 mls @ 100 mls/hr IV ONETIME ONE Stop: 07/04/17 13:59 Last Admin: 07/04/17 14:30 Dose: 100 mls/hr Tranexamic Acid 950 mg/ Sodium (Chloride) 59.5 mls @ 238 mls/hr IV Q3H [facility] Stop: 07/04/17 16:44 Last Admin: 07/04/17 17:02 Dose: 238 mls/hr Lactated Ringer's (Ringers, Lactated) Confirm Administered Dose 1,000 mls @ as directed .ROUTE .STK-MED ONE Stop: 07/04/17 15:25 Acetaminophen 1,000 mg/ Premix 100 mls @ 400 mls/hr IV NOW ONE Stop: 07/04/17 18:14 Last Admin: 07/04/17 17:29 Dose: 400 mls/hr Cefazolin Sodium 2 gm/ Sodium (Chloride) 50 mls @ 100 mls/hr IV Q8H [facility] Stop: 07/05/17 13:29 Last Admin: 07/05/17 14:42 Dose: 100 mls/hr Ketamine HCl (Ketalar) 23 mg IV ASDIRECTED [facility] Midazolam HCl (Versed 1 Mg/Ml) Confirm Administered Dose 2 mg .ROUTE .STK-MED ONE Stop: 07/04/17 12:08 Midazolam HCl (Versed 1 Mg/Ml) Confirm Administered Dose 2 mg .ROUTE .STK-MED ONE Stop: 07/04/17 15:25 Potassium Chloride (Klor-Con M20) 40 meq PO ONETIME ONE Stop: 07/06/17 09:01 Last Admin: 09/21/17 09:13 Dose: 40 meq Povidone Iodine (Betadine 10% Soln) Confirm Administered Dose 1 ml .ROUTE .STK- MED ONE Stop: 07/04/17 06:59 Last Admin: 07/04/17 15:59 Dose: 1 ml Propofol (Diprivan 20 Ml) Confirm Administered Dose 200 mg .ROUTE .STK-MED ONE Stop: 07/04/17 12:08 Propofol (Diprivan 20 Ml) Confirm Administered Dose 200 mg .ROUTE .STK-MED ONE Stop: 07/04/17 15:12 - Exam General: Alert, Cooperative, Mild Distress Lungs: Clear to Auscultation, Normal Respiratory Effort Cardiovascular: Regular Rate, Regular Rhythm, No Murmurs GI/Abdominal Exam: Normal Bowel Sounds, Soft, Non-Tender, No Organomegaly, No Distention Extremities: No Pedal Edema Skin: Warm, Dry Consult PN Assessment/Plan Procedures: Procedures BLOOD TYPING SEROLOGIC ABO (06/29/17) BLOOD TYPING SEROLOGIC RH(D) (06/29/17) COMP SCREEN MAMMOGRAM ADD-ON (02/16/15) COMPLETE CBC AUTOMATED (06/29/17) COMPREHEN METABOLIC PANEL (06/29/17) CULTURE OTHR SPECIMN AEROBIC (06/29/17) ELECTROCARDIOGRAM TRACING (06/29/17) OFFICE/OUTPATIENT VISIT NEW (04/13/17) PT EVALUATION (12/18/13) RBC ANTIBODY SCREEN (06/29/17) ROUTINE VENIPUNCTURE (06/29/17) THERAPEUTIC EXERCISES (12/18/13) URINALYSIS AUTO W/O SCOPE (06/29/17) Problem List Initiated/Reviewed/Updated: Yes Plan: ASSESSMENT AND RECOMMENDATIONS STATUS POST LEFT KNEE REPLACEMENT-stable and doing well since surgery 2 days ago -Postoperative care per Dr. Francisco HYPOKALEMIA-potassium today mildly low -Oral potassium replacement today -Recheck potassium level in a.m. HYPERTENSION-blood pressure is remained stable during hospital stay -Continue outpatient medical regimen, adjust as needed during hospital stay ENVIRONMENTAL ALLERGIES -Continue outpatient medical regimen
[2017-07-06] MEDS: Lisinopril 5 MG Tab PO SCH (12:16)
[2017-07-06] MEDS: Bisacodyl 5 MG Tab PO PRN (20:16)
[2017-07-07] MEDS: oxyCODONE 5 MG Tab PO PRN (05:09)
[2017-07-07] MEDS: Pantoprazole 40 MG Tab.CR PO SCH (07:33)
[2017-07-07] MEDS ORDERED: Bisacodyl 10 MG Supp RECTAL ONE (09:00)
[2017-07-07] MEDS: Fluticasone Propionate Nasal Spray 16 GM Bottle NASBOTH SCH (09:06)
[2017-07-07] MEDS: Sertraline 50 MG Tab PO SCH (09:06)
[2017-07-07] MEDS: atorvaSTATin 10 MG Tab PO SCH (09:07)
[2017-07-07] MEDS: Aspirin 325 MG Tab.EC PO SCH (09:07)
[2017-07-07] MEDS: QUEtiapine 100 MG Tab PO SCH (09:08)
[2017-07-07] MEDS: Lisinopril 5 MG Tab PO SCH (09:08)
[2017-07-07] MEDS: SCOPOLAMINE PATCH CHECK TOP SCH (09:09)
[2017-07-07] MEDS: Loratadine 10 MG Tab PO SCH (09:09)
[2017-07-07] MEDS: Sodium Chloride 0.9% 10 ML Syringe FLUSH SCH (09:10)
[2017-07-07 11:56] VITALS: BP 108/85
[2017-07-07] MEDS: traMADol 50 MG Tab PO PRN (12:47)
--- NOTE | 2017-07-20 10:24 | PCM.DCSUM1 ---
Discharge Summary - Hospital Course Free Text/Narrative:: Tanisha is a pleasant 71-year-old female who is status postop day 3 of left total knee replacement. She is doing very well. Patient plans to go to the [place] [facility] today. She denies any issues. Patient continues to work with physical therapy and strengthening. Pain is under control for pain medication. - Discharge Data Discharge Date: 07/07/17 Discharge Disposition: DC/Tfer to SNF 03 Condition: Good - Patient Summary/Data Consults: Consultations 07/04/17 16:41 Consult to Physician [CONS] Routine Consulting Provider: Edward Lopez Call Completed to Consulting Physician: Yes OT Evaluation and Treatment [CONS] Routine Please Evaluate and Treat. OT Reason for Consult: Strengthening This query below is only for informational purposes and is not editable. PT Evaluation and Treatment [CONS] Routine Please Evaluate and Treat. PT Reason for Consult: Strengthening This query below is only for informational purposes and is not editable. - Patient Instructions Diet: Usual Diet as Tolerated Activity: Apply Ice, As Tolerated Driving: Do Not Drive Showering/Bathing: May Shower, No Tub Bathing/Swimming Wound/Incision Care: Keep Operative Site/Wound Site Clean and Dry, Change Dressing Daily Notify Provider of: Fever - Discharge Plan Prescriptions/Med Rec: Acetaminophen/oxyCODONE [Percocet 325-5 MG] 1 each PO Q6HR #90 tab Aspirin [Ecotrin] 325 mg PO DAILY #30 tab.ec Home Medications: Home Meds Calcium Carbonate/Vitamin D3 [Calcium 600 + Vit D 400 Softgl] 1 tab PO BID 04/11 [History] Cholecalciferol (Vitamin D3) [Vitamin D3] 1 tab PO DAILY 04/11/17 [History] Docusate Sodium [Doc-Q-Lace] 10 mg PO DAILY 04/11/17 [History] Esomeprazole Magnesium [Nexium] 40 mg PO DAILY 04/11/17 [History] Fluticasone Propionate [Flonase] 2 spray NASBOTH DAILY 04/11/17 [History] Furosemide [Lasix] 20 mg PO DAILY 04/11/17 [History] Lisinopril [Zestril] 5 mg PO DAILY 04/11/17 [History] Loperamide [Imodium] 2 mg PO BID 04/11/17 [History] Loratadine [Claritin] 10 mg PO DAILY 04/11/17 [History] Naproxen 500 mg PO BID 04/11/17 [History] QUEtiapine [SEROquel] 100 mg PO DAILY 04/11/17 [History] atorvaSTATin [Lipitor] 10 mg PO DAILY 04/11/17 [History] Sertraline [Zoloft] 100 mg PO DAILY 04/13/17 [History] Acetaminophen/oxyCODONE [Percocet 325-5 MG] 1 each PO Q6HR #90 tab 07/07/17 [Rx] Aspirin [Ecotrin] 325 mg PO DAILY #30 tab.ec 07/07/17 [Rx] Referrals: Talia Jo, ARUNA [Nurse Practitioner] - (3 week follow up) - Discharge Summary/Plan Comment DC Time >30 min.: Yes Discharge Summary/Plan Comment: Tanisha will go to a [facility] [facility] today. She will have a short-term rehabilitation stay. She'll follow-up with us in 3 weeks for staple removal. Patient will continue to receive physical therapy. I did send her to [facility] with Percocet. - Patient Data Vitals - Most Recent: Last Vital Signs Temp 35.8 C 07/07/17 11:55 Pulse 105 H 07/07/17 11:55 Resp 16 07/07/17 11:55 BP 108/85 07/07/17 11:55 Pulse Ox 92 L 07/07/17 11:55 Weight - Most Recent: 205 lb Med Orders - Current: Current Medications Discontinued Medications Al Hydroxide/Mg Hydroxide (Mag-Al Plus) 30 ml PO Q4H PRN PRN Reason: Constipation Aspirin (Ecotrin) 325 mg PO DAILY [facility] Last Admin: 07/07/17 09:07 Dose: 325 mg Atorvastatin Calcium (Lipitor) 10 mg PO DAILY [facility] Last Admin: 07/07/17 09:07 Dose: 10 mg Bisacodyl (Dulcolax) 10 mg PO DAILY PRN PRN Reason: Constipation Last Admin: 07/06/17 20:16 Dose: 10 mg Bisacodyl (Dulcolax) 10 mg RECTAL ONETIME ONE Stop: 07/07/17 09:01 Last Admin: 07/07/17 08:18 Dose: 10 mg Ropivacaine 49.25 ml/Ketorolac Tromethamine 30 mg/Epinephrine HCl 0.5 mg/ Clonidine HCl 80 mcg/ Sodium Chloride 48.45 ml 0 ml INJECT ONETIME ONE Stop: 07/04/17 13:31 Last Admin: 07/04/17 16:30 Dose: 100 ml Diazepam (Valium.) 5 mg PO Q6H PRN PRN Reason: Spasms Last Admin: 07/06/17 03:51 Dose: 5 mg Diphenhydramine HCl (Benadryl) 25 mg IVPUSH Q4H PRN PRN Reason: Itching Docusate Sodium (Colace) 100 mg PO BID PRN PRN Reason: Constipation Last Admin: 07/06/17 20:16 Dose: 100 mg Fentanyl (Sublimaze) Confirm Administered Dose 100 mcg .ROUTE .STK-MED ONE Stop: 07/04/17 12:08 Fluticasone Propionate (Flonase) 0 gm NASBOTH DAILY [facility] Last Admin: 07/07/17 09:06 Dose: 2 sprays Gentamicin Sulfate (Gentamicin) Confirm Administered Dose 240 mg .ROUTE .STK- MED ONE Stop: 07/04/17 06:59 Last Admin: 07/04/17 15:42 Dose: 240 mg Cefazolin Sodium 2 gm/ Sodium (Chloride) 50 mls @ 100 mls/hr IV ONETIME ONE Stop: 07/04/17 13:59 Last Admin: 07/04/17 14:30 Dose: 100 mls/hr Lactated Ringer's (Ringers, Lactated) 1,000 mls @ 0 mls/hr IV ASDIRECTED [facility] PRN Reason: KVO Last Infusion: 07/04/17 19:32 Dose: Infused Tranexamic Acid 950 mg/ Sodium (Chloride) 59.5 mls @ 238 mls/hr IV Q3H [facility] Stop: 07/04/17 16:44 Last Admin: 07/04/17 17:02 Dose: 238 mls/hr Lactated Ringer's (Ringers, Lactated) Confirm Administered Dose 1,000 mls @ as directed .ROUTE .STK-MED ONE Stop: 07/04/17 15:25 Acetaminophen 1,000 mg/ Premix 100 mls @ 400 mls/hr IV NOW ONE Stop: 07/04/17 18:14 Last Admin: 07/04/17 17:29 Dose: 400 mls/hr Cefazolin Sodium 2 gm/ Sodium (Chloride) 50 mls @ 100 mls/hr IV Q8H [facility] Stop: 07/05/17 13:29 Last Admin: 07/05/17 14:42 Dose: 100 mls/hr Ketamine HCl (Ketalar) 23 mg IV ASDIRECTED [facility] Ketorolac Tromethamine (Toradol) 15 mg IVPUSH Q8H PRN PRN Reason: Pain Stop: 07/09/17 16:41 Last Admin: 07/05/17 01:23 Dose: 15 mg Lisinopril (Prinivil) 5 mg PO DAILY [facility] Last Admin: 07/07/17 09:08 Dose: 5 mg Loratadine (Claritin) 10 mg PO DAILY [facility] Last Admin: 07/07/17 09:09 Dose: 10 mg Magnesium Hydroxide (Milk Of Magnesia) 30 ml PO BID PRN PRN Reason: Constipation Last Admin: 07/06/17 20:16 Dose: 30 ml Midazolam HCl (Versed 1 Mg/Ml) Confirm Administered Dose 2 mg .ROUTE .STK-MED ONE Stop: 07/04/17 12:08 Midazolam HCl (Versed 1 Mg/Ml) Confirm Administered Dose 2 mg .ROUTE .STK-MED ONE Stop: 07/04/17 15:25 Morphine Sulfate (Morphine) 2 mg IVPUSH Q2H PRN PRN Reason: Pain Naloxone HCl (Narcan) 0.1 mg IVPUSH ONETIME PRN PRN Reason: Oversedation Scopolamine Patch (Check) 1 each TOP DAILY [facility] Last Admin: 07/07/17 09:09 Dose: Not Given Ondansetron HCl (Zofran) 8 mg IVPUSH Q4H PRN PRN Reason: Nausea/Vomiting Oxycodone HCl (Oxycodone) 10 mg PO Q4H PRN PRN Reason: Pain Last Admin: 07/07/17 05:09 Dose: 10 mg Pantoprazole Sodium (Protonix) 40 mg PO ACBREAKFAST [facility] Last Admin: 07/07/17 07:33 Dose: 40 mg Potassium Chloride (Klor-Con M20) 40 meq PO ONETIME ONE Stop: 07/06/17 09:01 Last Admin: 07/06/17 09:13 Dose: 40 meq Povidone Iodine (Betadine 10% Soln) Confirm Administered Dose 1 ml .ROUTE .STK- MED ONE Stop: 07/04/17 06:59 Last Admin: 07/04/17 15:59 Dose: 1 ml Propofol (Diprivan 20 Ml) Confirm Administered Dose 200 mg .ROUTE .STK-MED ONE Stop: 07/04/17 12:08 Propofol (Diprivan 20 Ml) Confirm Administered Dose 200 mg .ROUTE .STK-MED ONE Stop: 07/04/17 15:12 Quetiapine Fumarate (Seroquel) 100 mg PO DAILY [facility] Last Admin: 07/07/17 09:08 Dose: 100 mg Scopolamine (Transderm-Scop) 1.5 mg TRDERM Q72H [facility] Stop: 07/07/17 12:00 Last Admin: 07/04/17 21:15 Dose: 1.5 mg Senna (Senna) 8.6 mg PO BID PRN PRN Reason: Constipation Last Admin: 07/06/17 20:16 Dose: 8.6 mg Sertraline HCl (Zoloft) 100 mg PO DAILY [facility] Last Admin: 07/07/17 09:06 Dose: 100 mg Sodium Chloride (Saline Flush) 10 ml FLUSH DAILY [facility] Last Admin: 07/07/17 09:10 Dose: Not Given Tramadol HCl (Ultram) 100 mg PO Q6H PRN PRN Reason: Pain Last Admin: 07/07/17 12:47 Dose: 100 mg Zolpidem Tartrate (Ambien) 5 mg PO BEDTIME PRN PRN Reason: Sleep - Exam General: Reports: Alert, Oriented Extremities: Normal Inspection, Normal Range of Motion, Normal Capillary Refill , Pedal Edema Skin: Reports: Warm, Dry, Intact Wound/Incisions: Reports: Healing Well, Dressing Dry and Intact Neurological: Reports: No New Focal Deficit Psy/Mental Status: Reports: Alert *Q Meaningful Use (DIS) - VTE *Q VTE Criteria *Q: - Stroke *Q Stroke Criteria *Q: - AMI *Q AMI Criteria *Q:
== END 2017-07-07 14:02 | disposition home or self-care (01) | DRG 470 ==
LOC: EDSTATUS 10:30 → JP.SDSSCHI 11:58 → JP.SDS 11:58 → JP.MS 16:41
PROVIDERS: ADMIT Orthopaedic Surgery; ATTEND Orthopaedic Surgery
PROC: 0SRD0J9 Replacement of Left Knee Joint with Synthetic Substitute, Cemented, Open Approach (ICD-10-PCS; principal; 2017-07-04)
DX: M17.12 Unilateral primary osteoarthritis, left knee (principal); I10 Essential (primary) hypertension; M54.9 Dorsalgia, unspecified; G89.29 Other chronic pain; K21.9 Gastro-esophageal reflux disease without esophagitis; H54.7 Unspecified visual loss; F81.9 Developmental disorder of scholastic skills, unspecified; Z79.82 Long term (current) use of aspirin; Z88.8 Allergy status to other drugs, medicaments and biological substances; Z91.09 Other allergy status, other than to drugs and biological substances; E87.6 Hypokalemia
CPT/HCPCS: 36415; 73560-26-LT; 73560-LT; 80053; 85025; 86850; 86900; 86901; 94762; 97110-GP; 97162-GP; 97165-GO; 97530-GP; A9270-GY; C1713; C1776; J0131; J0171; J0690; J0735; J1580; J1885; J2250; J2704; J2795; J3010; J7050; J7120

== ENCOUNTER 2023-03-23 07:21 | Day surgery (SDC) | payer MEDICARE ==
[2023-03-23] MEDS ORDERED: Sodium Chloride 0.9% 10 ML Syringe FLUSH PRN (07:45)
[2023-03-23 08:34] VITALS: BP 193/76; PULSE 68
== END 2023-03-23 08:46 | disposition home or self-care (01) ==
LOC: JP.SDS 07:21
PROVIDERS: ATTEND Ophthalmology
DX: H26.9 Unspecified cataract (principal); F41.9 Anxiety disorder, unspecified; F32.A Depression, unspecified; Z79.899 Other long term (current) drug therapy
CPT/HCPCS: 66984; J3490

== ENCOUNTER 2025-04-07 06:47 | Day surgery (SDC) | payer MEDICARE ==
[2025-04-07] MEDS: Lactated Ringers 1,000 ML IV SCH (07:46)
[2025-04-07] MEDS ORDERED: fentaNYL 100 MCG/2 ML SDV ONE (08:24)
[2025-04-07] MEDS ORDERED: Propofol 200 MG/20 ML SDV ONE ×2 (08:24→08:54)
[2025-04-07 09:21] VITALS: PULSE 74
[2025-04-07 09:56] VITALS: BP 157/65
== END 2025-04-07 10:34 | disposition other institution (70) ==
LOC: JP.SDS 06:47
PROVIDERS: ATTEND Surgery
DX: K29.50 Unspecified chronic gastritis without bleeding (principal); F32.A Depression, unspecified; K21.9 Gastro-esophageal reflux disease without esophagitis
CPT/HCPCS: 00813; 43239; 45380; J2704; J3010; J7120; 88305